=== PATIENT | male | born 1945 | race Caucasian/White ===

== ENCOUNTER 2017-11-15 13:07 | Day surgery (SDC) | payer MEDICARE, OTHER ==
[2017-11-14 13:25] VITALS: BMI 24.4
[2017-11-15 14:03] LABS: #Eosinphils 0.2 thou/uL (0.0-0.7); #Lymphocytes 2.1 thou/uL (1.20-3.40); #Neutrophils 7.7 thou/uL (1.40-6.50); %Basophils 0.4 % (0.0-1.0); %Eosinophils 1.8 % (0.0-10.0); %Lymphocytes 18.6 % (21.0-51.0); %Monocytes 9.4 % (0.0-10.0); %Neutrophils 69.9 % (42.0-75.0); Hemoglobin 12.9 g/dL (14.0-18.0); Mean Corpuscular HGB CONC 34.7 g/dL (32.0-36.0); Mean Corpuscular Hemoglobin 31.4 pg (27.0-31.0); Mean Corpuscular Volume 90.4 fl (80.0-94.0); Platelet Count 201 thou/uL (130-400); White Blood Cell (WBC) Count 11.1 thou/uL (4.8-10.8)
[2017-11-15] MEDS ORDERED: Fentanyl 100 MCG/2 ML VIAL ONE (14:06)
[2017-11-15] MEDS ORDERED: Midazolam HCl 2 mg/2 ml Vial ONE (14:06)
[2017-11-15 14:25] LABS: Anion Gap 15 mmol/L (10-20); BUN (Urea Nitrogen) 27 mg/dL (8.4-25.7); Calc. Creatinine Clearance 59 mL/min (70-130); Calcium 9.1 mg/dL (7.8-10.44); Carbon Dioxide 28 mmol/L (23-31); Chloride 98 mmol/L (98-107); Estimated GFR-MDRD 53; Glucose 215 mg/dL (83-110); Potassium 4.1 mmol/L (3.5-5.1); Sodium 137 mmol/L (136-145)
--- NOTE | 2017-11-15 15:53 | MRI ---
MRI OF BRAIN WITH AND WITHOUT CONTRAST: 11/15/17 HISTORY: Malignant neoplasm of the right lung or bronchus. Evaluation for intracranial metastases. COMPARISON: None. TECHNIQUE: Brain MRI is performed with and without intravenous gadolinium administration. Multisequential, multi planar imaging is performed. FINDINGS: No significant hemorrhage on the axial gradient echo sequence. The calvarium is a normal T1 marrow si gnal intensity. Midline brain parenchymal structures are unremarkable. No parenchymal mass, mass effe ct or midline shift. Brain volume is age appropriate. Cortical rg-white matter differentiation is p reserved. Ventricles and sulci are patent and symmetric. T2 and FLAIR white matter hyperintensities due to suction operator raji small vessel ischemic change are noted. Mild mucosal thickening of the ethmoid air cells. Adequate mastoid air cell aeration. No pathologic enhancement of the brain parenchyma. IMPRESSION: 1. No pathologic enhancement of the brain parenchyma. 2. Chronic small vessel ischemic change of the white matter. Age appropriate atrophy. POS: [facility]
[2017-11-15] MEDS ORDERED: Gadobenate Dimeglumine 529 MG/1 ML (20ML VIAL) ONE (16:15)
--- NOTE | 2017-11-17 08:54 | EKG ---
Test Reason : PREOP Blood Pressure : / mmHG Vent. 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
== END 2017-11-15 17:14 | disposition home or self-care (01) ==
LOC: SDC/OP 13:07
PROVIDERS: ATTEND Internal Medicine Hematology & Oncology
DX: C34.91 Malignant neoplasm of unspecified part of right bronchus or lung (principal)
CPT/HCPCS: 36415; 70553; 80048; 85025; 93005; 93010; A9579; J2250; J3010